=== PATIENT | male | born 1980 | race Caucasian/White ===

== ENCOUNTER 2017-12-29 12:22 | Emergency (ER) | payer BC ==
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
[2017-12-29 16:04] VITALS: TEMP 97.8; O2SAT 99
[2017-12-29 16:05] VITALS: BP 150/87
== END 2017-12-29 15:48 | disposition home or self-care (01) ==
LOC: ER 12:22
DX: S29.012A Strain of muscle and tendon of back wall of thorax, initial encounter (principal); V45.5XXA Car driver injured in collision with railway train or railway vehicle in traffic accident, initial encounter; F17.210 Nicotine dependence, cigarettes, uncomplicated; Z88.5 Allergy status to narcotic agent
CPT/HCPCS: 99283

== ENCOUNTER 2018-08-02 18:18 | Emergency (ER) | payer BC ==
[2018-08-02] MEDS ORDERED: NA CHLORIDE 0.9% 1,000 ML ONE (19:28)
[2018-08-02 19:30] LABS: Absolute Lymphocytes (CBC) 0.7 K/uL (0.7-4.9); Absolute Monocytes 0.6 K/uL (0.1-1.3)
[2018-08-02 19:40] LABS: Absolute Neutrophil 11.2 K/uL (1.8-8.0); Basophils % 0.1 % (0-1.3); Hematocrit 52.3 % (39.6-49.0); Lymphocytes % 5.6 % (15.3-44.8); MPV 10.1 fL (7.6-11.3); Monocytes % 4.5 % (3.3-12.3); RBC Red Blood Cell Count 5.56 M/uL (4.33-5.43)
[2018-08-02 19:44] LABS: Albumin 4.1 g/dL (3.4-5.0); Bilirubin Total 0.7 mg/dL (0.2-1.0); Protein, Total 8.2 g/dL (6.4-8.2)
--- NOTE | 2018-08-02 19:56 | EDPHYS ---
Physician Documentation [facility] Name: Rogelio Roman Jr Age: 38 yrs Sex: Male : 1980 Arrival Date: 08/02/2018 Time: 18:19 Bed 26 Private MD: ED Physician Liborio Reagan HPI: 08/02 19:07 This 38 yrs old Male presents to ER via Ambulatory with complaints of pm1 Vomiting/Diarrhea. 19:07 The patient presents to the emergency department with vomiting, diarrhea. Onset: The pm1 symptoms/episode began/occurred today. Possible causes: sick contacts, by family, daughter, son, . The symptoms are aggravated by nothing. The symptoms are alleviated by nothing. Associated signs and symptoms: Pertinent negatives: abdominal pain, dysuria, fever. Severity of symptoms: in the emergency department the symptoms have improved Pain is currently a 0 / 10. The patient has not recently seen a physician. Patient's , daughter, and son with less than 24 hours stomach virus over the past week. Patient was the last family member to ge the illness. Historical: - Allergies: 18:45 Hydrocodone-Acetaminophen; la1 - PMHx: 18:45 None; la1 - Immunization history:: Adult Immunizations. - Social history:: Smoking status: Patient uses tobacco products, smokes one-half pack cigarettes per day. - Ebola Screening: : No symptoms or risks identified at this time. ROS: 19:07 Constitutional: Negative for fever, chills, and weight loss, Eyes: Negative for injury, pm1 pain, redness, and discharge, ENT: Negative for injury, pain, and discharge, Neck: Negative for injury, pain, and swelling, Cardiovascular: Negative for chest pain, palpitations, and edema, Respiratory: Negative for shortness of breath, cough, wheezing, and pleuritic chest pain. 19:07 Back: Negative for injury and pain, : Negative for injury, bleeding, discharge, and swelling, MS/Extremity: Negative for injury and deformity, Skin: Negative for injury, rash, and discoloration, Neuro: Negative for headache, weakness, numbness, tingling, and seizure. 19:07 Abdomen/GI: Positive for nausea, vomiting, and diarrhea, Negative for abdominal pain. Exam: 19:07 Constitutional: This is a well developed, well nourished patient who is awake, alert, pm1 and in no acute distress. Head/Face: Normocephalic, atraumatic. Eyes: Pupils equal round and reactive to light, extra-ocular motions intact. Lids and lashes normal. Conjunctiva and sclera are non-icteric and not injected. Cornea within normal limits. Periorbital areas with no swelling, redness, or edema. ENT: Nares patent. No nasal discharge, no septal abnormalities noted. Tympanic membranes are normal and external auditory canals are clear. Oropharynx with no redness, swelling, or masses, exudates, or evidence of obstruction, uvula midline. Mucous membranes moist. Neck: Trachea midline, no thyromegaly or masses palpated, and no cervical lymphadenopathy. Supple, full range of motion without nuchal rigidity, or vertebral point tenderness. No Meningismus. Chest/axilla: Normal chest wall appearance and motion. Nontender with no deformity. No lesions are appreciated. Cardiovascular: Regular rate and rhythm with a normal S1 and S2. No gallops, murmurs, or rubs. Normal PMI, no JVD. No pulse deficits. Respiratory: Lungs have equal breath sounds bilaterally, clear to auscultation and percussion. No rales, rhonchi or wheezes noted. No increased work of breathing, no retractions or nasal flaring. Abdomen/GI: Soft, non-tender, with normal bowel sounds. No distension or tympany. No guarding or rebound. No evidence of tenderness throughout. Back: No spinal tenderness. No costovertebral tenderness. Full range of motion. Skin: Warm, dry with normal turgor. Normal color with no rashes, no lesions, and no evidence of cellulitis. MS/ Extremity: Pulses equal, no cyanosis. Neurovascular intact. Full, normal range of motion. 19:07 Neuro: Orientation: is normal, Motor: is normal, moves all fours. Vital Signs: 18:39 BP 130 / 82; Pulse 92; Resp 16; Temp 98.8(O); Pulse Ox 98% ; lt1 20:07 BP 127 / 74; Pulse 81; Resp 16; Pulse Ox 98% on R/A; la1 MDM: 18:48 Patient medically screened. [facility] 19:54 Data reviewed: vital signs. Data interpreted: Pulse oximetry: on room air is 98 %. pm1 Interpretation: normal. Counseling: I had a detailed discussion with the patient and/or guardian regarding: the historical points, exam findings, and any diagnostic results supporting the discharge/admit diagnosis, lab results, the need for outpatient follow up, to return to the emergency department if symptoms worsen or persist or if there are any questions or concerns that arise at home. 08/02 19:06 Order name: CBC with Diff pm1 08/02 19:06 Order name: CMP; Complete Time: 19:52 pm1 08/02 19:06 Order name: IV Saline Lock; Complete Time: 19:47 pm1 08/02 19:06 Order name: Urine Dipstick-Ancillary (obtain specimen); Complete Time: 19:55 pm1 08/02 19:58 Order name: Urine Dipstick--Ancillary (enter results) mw2 Administered Medications: 19:16 Drug: NS 0.9% 1000 ml Route: IV; Rate: 1000 ml; Site: right antecubital; la1 19:54 Follow up: IV Status: Completed infusion la1 20:07 Follow up: IV Status: Completed infusion la1 Disposition: 08/03 06:52 Co-signature as Attending Physician, Liborio Reagan MD I agree with the assessment and yung plan of care. Disposition: 08/02/18 19:56 Discharged to Home. Impression: Vomiting, Diarrhea, unspecified. - Condition is Stable. - Discharge Instructions: Food Choices to Help Relieve Diarrhea, Adult, Diarrhea, Adult, Viral Gastroenteritis, Adult, Vomiting, Child. - Prescriptions for Zofran 4 mg Oral Tablet - take 1 tablet by ORAL route every 12 hours As needed; 20 tablet. - Work release form, Medication Reconciliation Form, Thank You Letter, Antibiotic Education, Prescription Opioid Use form. - Follow up: Emergency Department; When: As needed; Reason: Worsening of condition. Follow up: Private Physician; When: 2 - 3 days; Reason: Recheck today's complaints, Continuance of care, Re-evaluation by your physician. - Problem is new. - Symptoms have improved. Signatures: Dispatcher [employer] Liborio Bustos MD MD cha Attema, Lee RN RN la1 Hal Ogden, FREIGHT AIR BRAKE FITTER FREIGHT [employer] BRAKE FITTER pm1 Corrections: (The following items were deleted from the chart) 08/02 20:07 19:56 08/02/2018 19:56 Discharged to Home. Impression: Vomiting; Diarrhea, unspecified. la1 Condition is Stable. Forms are Medication Reconciliation Form, Thank You Letter, Antibiotic Education, Prescription Opioid Use. Follow up: Emergency Department; When: As needed; Reason: Worsening of condition. Follow up: Private Physician; When: 2 - 3 days; Reason: Recheck today's complaints, Continuance of care, Re-evaluation by your physician. Problem is new. Symptoms have improved. pm1
--- NOTE | 2018-08-02 19:56 | ER ---
Nurse's Notes [facility] Name: Rogelio Roman Jr Age: 38 yrs Sex: Male : 1980 Arrival Date: 08/02/2018 Time: 18:19 Bed 26 Private MD: Diagnosis: Vomiting;Diarrhea, unspecified Presentation: 08/02 18:44 Presenting complaint: Patient states: N/V/D since , family with similar sx. la1 Transition of care: patient was not received from another setting of care. Onset of symptoms was August 02, 2018. Risk Assessment: Do you want to hurt yourself or someone else? Patient reports no desire to harm self or others. Initial Sepsis Screen: Does the patient meet any 2 criteria? No. Patient's initial sepsis screen is negative. Does the patient have a suspected source of infection? No. Patient's initial sepsis screen is negative. Care prior to arrival: None. 18:44 Method Of Arrival: Ambulatory la1 18:44 Acuity: SEYMOUR 3 la1 Historical: - Allergies: 18:45 Hydrocodone-Acetaminophen; la1 - PMHx: 18:45 None; la1 - Immunization history:: Adult Immunizations. - Social history:: Smoking status: Patient uses tobacco products, smokes one-half pack cigarettes per day. - Ebola Screening: : No symptoms or risks identified at this time. Screenin:47 Abuse screen: Denies threats or abuse. Nutritional screening: No deficits noted. la1 Tuberculosis screening: No symptoms or risk factors identified. Fall Risk None identified. Assessment: 18:46 General: Appears in no apparent distress. Behavior is. Pain: Denies pain. Neuro: Level la1 of Consciousness is awake, alert, obeys commands, Oriented to person, place, time, situation. Cardiovascular: Capillary refill < 3 seconds Patient's skin is warm and dry. Respiratory: Airway is patent Respiratory effort is even, unlabored, Respiratory pattern is regular, symmetrical, Breath sounds are clear bilaterally. GI: Abdomen is round non-distended, Bowel sounds present X 4 quads. Abd is soft and non tender X 4 quads. Reports diarrhea, nausea, vomiting, Patient currently denies normal bowel habits. : No signs and/or symptoms were reported regarding the genitourinary system. Vital Signs: 18:39 BP 130 / 82; Pulse 92; Resp 16; Temp 98.8(O); Pulse Ox 98% ; lt1 20:07 BP 127 / 74; Pulse 81; Resp 16; Pulse Ox 98% on R/A; la1 ED Course: 18:19 Patient arrived in ED. as 18:44 Joon Capone RN is Primary Nurse. la1 18:44 Hal Ogden NP is PHCP. pm1 18:44 Liborio Reagan MD is Attending Physician. pm1 18:45 Triage completed. la1 18:45 Arm band placed on left wrist. la1 18:48 Bed in low position. Call light in reach. Side rails up X 1. la1 20:06 No provider procedures requiring assistance completed. IV discontinued, intact, la1 bleeding controlled, No redness/swelling at site. Pressure dressing applied. Administered Medications: 19:16 Drug: NS 0.9% 1000 ml Route: IV; Rate: 1000 ml; Site: right antecubital; la1 19:54 Follow up: IV Status: Completed infusion la1 20:07 Follow up: IV Status: Completed infusion la1 Outcome: 19:56 Discharge ordered by . pm1 20:07 Discharged to home ambulatory. la1 20:07 Condition: stable 20:07 Discharge instructions given to patient, Instructed on discharge instructions, follow up and referral plans. medication usage, Demonstrated understanding of instructions, follow-up care, medications, Prescriptions given X 1. 20:07 Patient left the ED. la1 Signatures: Ines Jain as Joon Capone RN RN la1 Hal Ogden NP REGISTERED NURSES pm1 Aislinn Larson lt
[2018-08-02 20:20] VITALS: TEMP 98.8; O2SAT 98
[2018-08-02 20:22] VITALS: BP 127/74
[2018-08-02 20:22] LABS: Urine Blood NEGATIVE (NEG); Urine Glucose NEGATIVE (NEG); Urine Protein 1+ (NEG); Urine pH 7.5 (5.0-7.0)
[2018-08-02 20:28] LABS: Blood Morphology Comment NOT SEEN (NOT SEEN); Platelet Estimate ADEQ; Urine White Blood Cell Casts OK
== END 2018-08-02 20:07 | disposition home or self-care (01) ==
LOC: ER 18:18
DX: R11.10 Vomiting, unspecified (principal); R19.7 Diarrhea, unspecified; F17.210 Nicotine dependence, cigarettes, uncomplicated; Z88.5 Allergy status to narcotic agent
CPT/HCPCS: 36415; 80053; 81003; 85025; 96360; 99283; J7030

== ENCOUNTER 2019-01-21 12:29 | Emergency (ER) | payer BC, SELFPAY ==
[2019-01-21 13:12] LABS: Absolute Lymphocytes (CBC) 2.2 K/uL (0.7-4.9); Basophils % 0.9 % (0-1.3); Hematocrit 47.1 % (39.6-49.0); Lymphocytes % 25.3 % (15.3-44.8); MPV 9.7 fL (7.6-11.3); RBC Red Blood Cell Count 5.05 M/uL (4.33-5.43)
[2019-01-21 13:26] LABS: Potassium 3.9 mmol/L (3.5-5.1)
--- NOTE | 2019-01-21 13:39 | ER ---
Nurse's Notes [facility] Name: Rogelio Roman Jr Age: 38 yrs Sex: Male : 1980 Arrival Date: 01/21/2019 Time: 12:30 Bed 5 Private MD: Unknown, Unknown Diagnosis: Nausea with vomiting, unspecified;Diarrhea, unspecified Presentation: 01/21 12:39 Presenting complaint: Patient states: chills, vomiting, diarrhea since Friday, iw intermittent abd cramping. Transition of care: patient was not received from another setting of care. Onset of symptoms was January 16, 2019. Risk Assessment: Do you want to hurt yourself or someone else? Patient reports no desire to harm self or others. Initial Sepsis Screen: Does the patient meet any 2 criteria? No. Patient's initial sepsis screen is negative. Does the patient have a suspected source of infection? No. Patient's initial sepsis screen is negative. Care prior to arrival: None. 12:39 Method Of Arrival: Ambulatory iw 12:39 Acuity: SEYMOUR 3 iw Historical: - Allergies: 12:41 Hydrocodone-Acetaminophen; iw - Home Meds: 12:41 None [Active]; iw - PMHx: 12:41 None; iw - PSHx: 12:41 Hernia repair; Knee surgery; iw - Immunization history:: Adult Immunizations unknown. - Social history:: Smoking status: Patient uses tobacco products. - Ebola Screening: : Patient negative for fever greater than or equal to 101.5 degrees Fahrenheit, and additional compatible Ebola Virus Disease symptoms Patient denies exposure to infectious person Patient denies travel to an Ebola-affected area in the 21 days before illness onset No symptoms or risks identified at this time. Screenin:30 Abuse screen: Denies threats or abuse. Denies injuries from another. Nutritional ph screening: No deficits noted. Tuberculosis screening: No symptoms or risk factors identified. Fall Risk None identified. Assessment: 13:00 General: Appears in no apparent distress. comfortable, slender, well groomed, Behavior ph is calm, cooperative, appropriate for age, Denies fever. Pain: Complains of pain in abdomen Quality of pain is described as sore. Neuro: Level of Consciousness is awake, alert, obeys commands, Oriented to person, place, time, situation. Cardiovascular: Capillary refill < 3 seconds in bilateral fingers Patient's skin is warm and dry. Respiratory: Airway is patent Respiratory effort is even, unlabored. GI: Abdomen is flat, non-distended, Abd is soft and non tender X 4 quads. Reports diarrhea, nausea, vomiting. Derm: Skin is intact, is healthy with good turgor, Skin is pink, warm \T\ dry. Musculoskeletal: Circulation, motion, and sensation intact. Range of motion: intact in all extremities. Vital Signs: 13:42 BP 127 / 86; Pulse 74; Resp 16 S; Temp 97.7(TE); Pulse Ox 100% on R/A; Pain 0/10; iw ED Course: 12:30 Patient arrived in ED. as 12:30 Unknown, Unknown is Private Physician. as 12:33 Sandra Martel FNP-C is [facility]. kb 12:33 Ta Collazo MD is Attending Physician. kb 12:34 Yamilka Emanuel RN is Primary Nurse. ph 12:40 Triage completed. iw 12:41 Arm band placed on. iw 13:05 No provider procedures requiring assistance completed. Inserted saline lock: 20 gauge ph in left antecubital area, using aseptic technique. 13:30 Patient has correct armband on for positive identification. Placed in gown. Bed in low ph position. Call light in reach. Side rails up X 1. Pulse ox on. NIBP on. 14:00 IV discontinued, intact, bleeding controlled, No redness/swelling at site. Pressure ph dressing applied. Administered Medications: 14:00 Not Given (Physician Discretion): NS 0.9% 1000 ml IV at 1000 ml once ph 14:00 Drug: Zofran 4 mg Route: IVP; Site: left antecubital; ph 14:05 Follow up: Response: No adverse reaction; Medication administered at discharge. ph Outcome: 13:38 Discharge ordered by . kb 14:00 Patient left the ED. ph 14:00 Discharged to home ambulatory, with family. ph 14:00 Condition: good 14:00 Discharge instructions given to patient, Instructed on discharge instructions, follow up and referral plans. medication usage, Demonstrated understanding of instructions, follow-up care, medications, Prescriptions given X 2. Signatures: Sandra Martel FNP-C FNP-Ines Pacheco Irene, RN RN iw Emanuel, Yamilka, RN RN ph
--- NOTE | 2019-01-21 13:39 | EDPHYS ---
Physician Documentation [facility] Name: Rogelio Roman Jr Age: 38 yrs Sex: Male : 1980 Arrival Date: 01/21/2019 Time: 12:30 Bed 5 Private MD: Unknown, Unknown ED Physician Ta Collazo HPI: 01/21 13:35 This 38 yrs old Male presents to ER via Ambulatory with complaints of kb Vomiting/Diarrhea. 13:35 The patient presents to the emergency department with nausea, vomiting, diarrhea. kb Onset: The symptoms/episode began/occurred 5 day(s) ago. Possible causes: sick contacts. The symptoms are aggravated by nothing. The symptoms are alleviated by nothing. Associated signs and symptoms: Pertinent positives: abdominal pain, diarrhea, nausea, vomiting. Severity of symptoms: At their worst the symptoms were moderate in the emergency department the symptoms have improved mildly. The patient has not experienced similar symptoms in the past. The patient has not recently seen a physician. Pt reports abd cramps, n/v and diarrhea for 5 days. Vomiting stopped 2 days ago, but continues to have cramps and diarrhea. Denies fever. Reports 3 kids at home had a stomach virus last week. Historical: - Allergies: 12:41 Hydrocodone-Acetaminophen; iw - Home Meds: 12:41 None [Active]; iw - PMHx: 12:41 None; iw - PSHx: 12:41 Hernia repair; Knee surgery; iw - Immunization history:: Adult Immunizations unknown. - Social history:: Smoking status: Patient uses tobacco products. - Ebola Screening: : Patient negative for fever greater than or equal to 101.5 degrees Fahrenheit, and additional compatible Ebola Virus Disease symptoms Patient denies exposure to infectious person Patient denies travel to an Ebola-affected area in the 21 days before illness onset No symptoms or risks identified at this time. ROS: 13:32 Constitutional: Negative for fever, chills, and weight loss, ENT: Negative for injury, kb pain, and discharge, Neck: Negative for injury, pain, and swelling, Cardiovascular: Negative for chest pain, palpitations, and edema, Respiratory: Negative for shortness of breath, cough, wheezing, and pleuritic chest pain, Back: Negative for injury and pain, : Negative for injury, bleeding, discharge, and swelling, MS/Extremity: Negative for injury and deformity, Skin: Negative for injury, rash, and discoloration, Neuro: Negative for headache, weakness, numbness, tingling, and seizure. 13:32 Abdomen/GI: Positive for nausea, vomiting, and diarrhea, abdominal cramps. Exam: 13:32 Constitutional: This is a well developed, well nourished patient who is awake, alert, kb and in no acute distress. Head/Face: Normocephalic, atraumatic. Neck: Trachea midline, no thyromegaly or masses palpated, and no cervical lymphadenopathy. Supple, full range of motion without nuchal rigidity, or vertebral point tenderness. No Meningismus. Chest/axilla: Normal chest wall appearance and motion. Nontender with no deformity. No lesions are appreciated. Cardiovascular: Regular rate and rhythm with a normal S1 and S2. No gallops, murmurs, or rubs. Normal PMI, no JVD. No pulse deficits. Respiratory: Lungs have equal breath sounds bilaterally, clear to auscultation and percussion. No rales, rhonchi or wheezes noted. No increased work of breathing, no retractions or nasal flaring. Back: No spinal tenderness. No costovertebral tenderness. Full range of motion. Skin: Warm, dry with normal turgor. Normal color with no rashes, no lesions, and no evidence of cellulitis. MS/ Extremity: Pulses equal, no cyanosis. Neurovascular intact. Full, normal range of motion. Neuro: Awake and alert, GCS 15, oriented to person, place, time, and situation. Cranial nerves II-XII grossly intact. Motor strength 5/5 in all extremities. Sensory grossly intact. Cerebellar exam normal. Normal gait. 13:32 Abdomen/GI: Inspection: abdomen appears normal, Bowel sounds: normal, in all quadrants, Palpation: soft, in all quadrants, mild abdominal tenderness, in all quadrants. Vital Signs: 13:42 BP 127 / 86; Pulse 74; Resp 16 S; Temp 97.7(TE); Pulse Ox 100% on R/A; Pain 0/10; iw MDM: 12:34 Patient medically screened. kb 13:32 Data reviewed: vital signs, nurses notes. Data interpreted: Pulse oximetry: on room air kb is 100 %. Interpretation: normal. Counseling: I had a detailed discussion with the patient and/or guardian regarding: the historical points, exam findings, and any diagnostic results supporting the discharge/admit diagnosis, lab results, the need for outpatient follow up, a family practitioner, to return to the emergency department if symptoms worsen or persist or if there are any questions or concerns that arise at home. 01/21 12:40 Order name: Basic Metabolic Panel; Complete Time: 13:32 kb 01/21 12:40 Order name: CBC with Diff; Complete Time: 13:20 kb 01/21 12:40 Order name: IV Saline Lock; Complete Time: 12:41 kb 01/21 12:40 Order name: Labs collected and sent; Complete Time: 13:48 kb Administered Medications: 14:00 Not Given (Physician Discretion): NS 0.9% 1000 ml IV at 1000 ml once ph 14:00 Drug: Zofran 4 mg Route: IVP; Site: left antecubital; ph 14:05 Follow up: Response: No adverse reaction; Medication administered at discharge. ph Disposition: 15:18 Co-signature as Attending Physician, Ta Collazo MD I agree with the assessment and kdr plan of care. Disposition: 01/21/19 13:38 Discharged to Home. Impression: Nausea with vomiting, unspecified, Diarrhea, unspecified. - Condition is Stable. - Discharge Instructions: Food Choices to Help Relieve Diarrhea, Adult, Nausea and Vomiting, Adult, [id number], Diarrhea, Adult, [id number]. - Prescriptions for Bentyl 20 mg Oral Tablet - take 1 tablet by ORAL route every 6 hours As needed; 20 tablet. Zofran 4 mg Oral Tablet - take 1 tablet by ORAL route every 6 hours As needed; 20 tablet. - Work release form, Medication Reconciliation Form, Thank You Letter, Antibiotic Education, Prescription Opioid Use form. - Follow up: Emergency Department; When: As needed; Reason: Worsening of condition. Follow up: Private Physician; When: 2 - 3 days; Reason: Recheck today's complaints, Continuance of care, Re-evaluation by your physician. Signatures: Dispatcher [employer] EDSandra Martell, Ta Ko MD MD [facility] Romi Parham RN RN Yamilka Emanuel RN RN ph Corrections: (The following items were deleted from the chart) 14:00 13:38 01/21/2019 13:38 Discharged to Home. Impression: Nausea with vomiting, ph unspecified; Diarrhea, unspecified. Condition is Stable. Forms are Medication Reconciliation Form, Thank You Letter, Antibiotic Education, Prescription Opioid Use. Follow up: Emergency Department; When: As needed; Reason: Worsening of condition. Follow up: Private Physician; When: 2 - 3 days; Reason: Recheck today's complaints, Continuance of care, Re-evaluation by your physician. kb
[2019-01-21] MEDS ORDERED: ONDANSETRON 4 MG/2 ML VIAL ONE (13:46)
[2019-01-21 14:06] VITALS: BP 127/86; TEMP 97.7; O2SAT 100
== END 2019-01-21 14:00 | disposition home or self-care (01) ==
LOC: ER 12:29
DX: R19.7 Diarrhea, unspecified (principal); Z72.0 Tobacco use; Z88.5 Allergy status to narcotic agent
CPT/HCPCS: 36415; 80048; 85025; 96374; 99284; J2405

== ENCOUNTER 2019-02-22 09:04 | Emergency (ER) | payer BC, SELFPAY ==
--- NOTE | 2019-02-22 11:41 | EDPHYS ---
Physician Documentation [facility] Name: Rogelio Roman Jr Age: 39 yrs Sex: Male : 1980 Arrival Date: 02/22/2019 Time: 09:06 Bed 11 Private MD: Unknown, Unknown ED Physician Liborio Reagan HPI: 02/22 11:36 This 39 yrs old Male presents to ER via Ambulatory with complaints of Rash, yung Leg Pain. 11:36 The patient's rash thought to be caused by Dermatitis. The rash is located on the right yung leg and left leg. The rash can be described as erythematous, raised. Onset: The symptoms/episode began/occurred 5 day(s) ago. Associated signs and symptoms: Pertinent positives: burning sensation, Pertinent negatives: None. Severity of symptoms: At their worst the symptoms were mild in the emergency department the symptoms are unchanged. The patient has not experienced similar symptoms in the past. Historical: - Allergies: 09:33 Hydrocodone-Acetaminophen; la1 - PMHx: 09:33 Hypertension; la1 - Immunization history:: Adult Immunizations up to date. - Social history:: Smoking status: Patient uses tobacco products, smokes one-half pack cigarettes per day. - Ebola Screening: : No symptoms or risks identified at this time. - Family history:: not pertinent. ROS: 11:36 Constitutional: Negative for fever, chills, and weight loss, Eyes: Negative for injury, yung pain, redness, and discharge, ENT: Negative for injury, pain, and discharge, Neck: Negative for injury, pain, and swelling, Cardiovascular: Negative for chest pain, palpitations, and edema, Respiratory: Negative for shortness of breath, cough, wheezing, and pleuritic chest pain, Abdomen/GI: Negative for abdominal pain, nausea, vomiting, diarrhea, and constipation, Back: Negative for injury and pain, : Negative for injury, bleeding, discharge, and swelling, MS/Extremity: Negative for injury and deformity, Neuro: Negative for headache, weakness, numbness, tingling, and seizure, Psych: Negative for depression, anxiety, suicide ideation, homicidal ideation, and hallucinations, Allergy/Immunology: Negative for hives, rash, and allergies, Endocrine: Negative for neck swelling, polydipsia, polyuria, polyphagia, and marked weight changes, Hematologic/Lymphatic: Negative for swollen nodes, abnormal bleeding, and unusual bruising. 11:36 Skin: Positive for cellulitis, erythema, rash, swelling, of the right leg and left leg. Exam: 11:36 Constitutional: This is a well developed, well nourished patient who is awake, alert, yung and in no acute distress. Head/Face: Normocephalic, atraumatic. Eyes: Pupils equal round and reactive to light, extra-ocular motions intact. Lids and lashes normal. Conjunctiva and sclera are non-icteric and not injected. Cornea within normal limits. Periorbital areas with no swelling, redness, or edema. ENT: Nares patent. No nasal discharge, no septal abnormalities noted. Tympanic membranes are normal and external auditory canals are clear. Oropharynx with no redness, swelling, or masses, exudates, or evidence of obstruction, uvula midline. Mucous membranes moist. Neck: Trachea midline, no thyromegaly or masses palpated, and no cervical lymphadenopathy. Supple, full range of motion without nuchal rigidity, or vertebral point tenderness. No Meningismus. Chest/axilla: Normal chest wall appearance and motion. Nontender with no deformity. No lesions are appreciated. Cardiovascular: Regular rate and rhythm with a normal S1 and S2. No gallops, murmurs, or rubs. Normal PMI, no JVD. No pulse deficits. Respiratory: Lungs have equal breath sounds bilaterally, clear to auscultation and percussion. No rales, rhonchi or wheezes noted. No increased work of breathing, no retractions or nasal flaring. Abdomen/GI: Soft, non-tender, with normal bowel sounds. No distension or tympany. No guarding or rebound. No evidence of tenderness throughout. Back: No spinal tenderness. No costovertebral tenderness. Full range of motion. Male : Normal genitalia with no discharge or lesions. MS/ Extremity: Pulses equal, no cyanosis. Neurovascular intact. Full, normal range of motion. Neuro: Awake and alert, GCS 15, oriented to person, place, time, and situation. Cranial nerves II-XII grossly intact. Motor strength 5/5 in all extremities. Sensory grossly intact. Cerebellar exam normal. Normal gait. Psych: Awake, alert, with orientation to person, place and time. Behavior, mood, and affect are within normal limits. 11:36 Skin: Appearance: Moisture: normal moisture, swelling, that are mild, abscess, not appreciated, cellulitis, that is mild, induration, that is mild is noted. Vital Signs: 09:33 BP 125 / 89; Pulse 74; Resp 16; Temp 98.1; Pulse Ox 100% on R/A; Weight 78.47 kg; la1 Height 5 ft. 9 in. (175.26 cm); 09:33 Body Mass Index 25.55 (78.47 kg, 175.26 cm) la1 MDM: 10:48 Patient medically screened. [facility] 11:36 Data reviewed: vital signs, nurses notes. [facility] Administered Medications: 11:45 Drug: Bactrim (160 mg-800 mg (DS) 1 tablet Route: PO; 11:54 Follow up: Response: No adverse reaction; Medication administered at discharge. 11:45 Drug: Doxycycline 200 mg Route: PO; 11:54 Follow up: Response: No adverse reaction; Medication administered at discharge. 11:45 Drug: Bactroban Ointment 2 % 1 application Route: Topical; Site: affected area; ss Disposition: 02/22/19 11:40 Discharged to Home. Impression: Cellulitis and acute lymphangitis of other parts of limb, Impetigo. - Condition is Stable. - Discharge Instructions: Cellulitis, Adult, [id number]. - Prescriptions for Bactroban 2 % Topical Ointment - Apply to affected area 1 application by TOPICAL route every 12 hours; 30 gram. Benadryl 25 mg Oral Capsule - take 1 capsule by ORAL route every 6 hours As needed; 30 tablet. Doxycycline Hyclate 100 mg Oral Tablet - take 1 tablet by ORAL route every 12 hours; 20 tablet. Bactrim DS 800- 160 mg Oral Tablet - take 1 tablet by ORAL route every 12 hours for 10 days; 20 tablet. - Medication Reconciliation Form, Thank You Letter, Antibiotic Education, Prescription Opioid Use form. - Follow up: Private Physician; When: 2 - 3 days; Reason: Recheck today's complaints, Continuance of care, Re-evaluation by your physician. - Problem is new. - Symptoms have improved. Signatures: Liborio Reagan MD MD cha Smirch, Shelby, RN RN Joon Capone RN RN la1 Corrections: (The following items were deleted from the chart) 11:55 11:40 02/22/2019 11:40 Discharged to Home. Impression: Cellulitis and acute ss lymphangitis of other parts of limb; Impetigo. Condition is Stable. Forms are Medication Reconciliation Form, Thank You Letter, Antibiotic Education, Prescription Opioid Use. Follow up: Private Physician; When: 2 - 3 days; Reason: Recheck today's complaints, Continuance of care, Re-evaluation by your physician. Problem is new. Symptoms have improved. yung
--- NOTE | 2019-02-22 11:41 | ER ---
Nurse's Notes [facility] Name: Rogelio Roman Jr Age: 39 yrs Sex: Male : 1980 Arrival Date: 02/22/2019 Time: 09:06 Bed 11 Private MD: Unknown, Unknown Diagnosis: Cellulitis and acute lymphangitis of other parts of limb;Impetigo Presentation: 02/22 09:32 Presenting complaint: Patient states: rash to lower legs/hands for the last 2 weeks. la1 Transition of care: patient was not received from another setting of care. Onset of symptoms. Risk Assessment: Do you want to hurt yourself or someone else? Patient reports no desire to harm self or others. Initial Sepsis Screen: Does the patient meet any 2 criteria? No. Patient's initial sepsis screen is negative. Does the patient have a suspected source of infection? No. Patient's initial sepsis screen is negative. Care prior to arrival: None. 09:32 Method Of Arrival: Ambulatory la1 09:32 Method Of Arrival: Ambulatory la1 09:32 Acuity: SEYMOUR 5 la1 Historical: - Allergies: 09:33 Hydrocodone-Acetaminophen; la1 - PMHx: 09:33 Hypertension; la1 - Immunization history:: Adult Immunizations up to date. - Social history:: Smoking status: Patient uses tobacco products, smokes one-half pack cigarettes per day. - Ebola Screening: : No symptoms or risks identified at this time. - Family history:: not pertinent. Screenin:14 Abuse screen: Denies threats or abuse. Denies injuries from another. Nutritional ss screening: No deficits noted. Tuberculosis screening: Never had TB. Fall Risk None identified. Assessment: 11:00 General: Appears in no apparent distress. comfortable, Behavior is calm, cooperative, ss Denies fever, feeling ill, fatigue, chills. Neuro: Level of Consciousness is awake, alert, obeys commands, Oriented to person, place, time, situation. Cardiovascular: Capillary refill < 3 seconds is brisk in bilateral fingers. Respiratory: Airway is patent Respiratory effort is even, unlabored, Respiratory pattern is regular, symmetrical. GI: No signs and/or symptoms were reported involving the gastrointestinal system. EENT: Oral mucosa is moist. Derm: Rash noted that is itchy, red, vesicular, dry skin observed to affected area. Vital Signs: 09:33 BP 125 / 89; Pulse 74; Resp 16; Temp 98.1; Pulse Ox 100% on R/A; Weight 78.47 kg; la1 Height 5 ft. 9 in. (175.26 cm); 09:33 Body Mass Index 25.55 (78.47 kg, 175.26 cm) la1 ED Course: 09:06 Patient arrived in ED. ag5 09:06 Unknown, Unknown is Private Physician. ag5 09:32 Triage completed. la1 09:33 Arm band placed on right wrist. la1 10:48 Liborio Reagan MD is Attending Physician. yung 10:52 Heather Garcia, FARRUKH is Primary Nurse. ss 11:14 Patient has correct armband on for positive identification. Bed in low position. Call ss light in reach. 11:54 No provider procedures requiring assistance completed. Patient did not have IV access ss during this emergency room visit. Dressings: Kerlix X 2; left leg and right leg non-adherent dressing x 2 left leg and right leg. Administered Medications: 11:45 Drug: Bactrim (160 mg-800 mg (DS) 1 tablet Route: PO; ss 11:54 Follow up: Response: No adverse reaction; Medication administered at discharge. ss 11:45 Drug: Doxycycline 200 mg Route: PO; ss 11:54 Follow up: Response: No adverse reaction; Medication administered at discharge. 11:45 Drug: Bactroban Ointment 2 % 1 application Route: Topical; Site: affected area; ss Outcome: 11:40 Discharge ordered by . [facility] 11:54 Discharged to home ambulatory. 11:54 Condition: good 11:54 Discharge instructions given to patient, family, Instructed on follow up and referral plans. medication usage, wound care, Demonstrated understanding of instructions, follow-up care, medications, Prescriptions given X 4. 11:55 Patient left the ED. ss Signatures: Liborio Reagan MD MD cha Smirch, Shelby, FARRUKH CHADWICK Joon Capone RN RN la1 Gaskin, Ajare ag5
[2019-02-22] MEDS ORDERED: DOXYCYCLINE 100 MG CAP PO ONE (11:43)
[2019-02-22] MEDS ORDERED: SMZ./TMP. 800/160 MG TABLET ONE (11:44)
[2019-02-22] MEDS ORDERED: MUPIROCIN 2% OINT 22GM TUBE TOP ONE (11:46)
[2019-02-22 12:07] VITALS: BP 125/89; TEMP 98.1; O2SAT 100
== END 2019-02-22 11:55 | disposition home or self-care (01) ==
LOC: ER 09:04
DX: L01.00 Impetigo, unspecified (principal); L03.116 Cellulitis of left lower limb; L03.115 Cellulitis of right lower limb; L03.898 Acute lymphangitis of other sites; I10 Essential (primary) hypertension; F17.210 Nicotine dependence, cigarettes, uncomplicated; Z88.5 Allergy status to narcotic agent
CPT/HCPCS: 99283